=== PATIENT | male | born 1995 | race Caucasian/White ===

== ENCOUNTER 2016-05-21 13:11 | Emergency (ER) | payer MEDICAID ==
[2016-05-21 13:18] VITALS: O2SAT 95
--- NOTE | 2016-05-21 14:26 | EDPHY ---
H & P Time Seen by Provider: 05/21/16 14:25 HPI/ROS: CHIEF COMPLAINT: Nausea and vomiting HISTORY OF PRESENT ILLNESS: This 20-year-old man presents with his mother. He has a history apparently of diverticulosis diagnosed by CT in [place]. He has never had abdominal surgery and never had diverticulitis. Patient presents with onset of nausea and vomiting around midnight with multiple episodes of vomiting and diarrhea but without melena coffee-ground emesis or hematemesis. This is associated with mild diffuse abdominal cramping. No fever or chills and no recent fall injury or trauma. REVIEW OF SYSTEMS: Eye: no change in vision ENT: no sore throat Cardiac: no chest pain or syncope Pulmonary: no cough or SOB Abdomen: HPI Musculoskeletal: no back pain Skin: no rash Neuro: no headache Constitutional: no fever : no urinary symptoms A comprehensive 10 point review of systems is otherwise negative aside from elements mentioned in the history of present illness. PAST MEDICAL HISTORY: As in HPI Social history: Visiting from [place], with his mother, currently homeless. Temperature 36.7degrees General Appearance: Alert and conversant, cooperative. Eyes: No scleral icterus. ENT, Mouth: Slightly dry mucous membranes Respiratory: Normal respiratory effort, breath sounds equal, lungs are clear to auscultation. Cardiovascular: Regular rate and rhythm. Gastrointestinal: Abdomen is soft and non tender. Normal male . Normal bowel sounds. Neurological: Alert and oriented x3. Normally conversant. Face symmetric, normal movement and sensation in all extremities. Ambulatory to the bathroom Skin: Warm and dry, no rashes. Musculoskeletal: No peripheral edema and no joint swelling. Psychiatric: Mild to moderate anxiety otherwise normal. Emergency Department course/MDM: Zofran 4 mg IV and 2 L IV normal saline for vomiting. Clinical presentation suggests viral or food related gastroenteritis most likely , I think surgical diagnosis would be unlikely. 1628: Sleeping quietly, easily awakened, no nausea or vomiting, abdomen soft and nontender. Oral fluid trial now. Smoking Status: Current every day smoker Constitutional: Initial Vital Signs Heart Rate 112 H 05/21/16 13:16 Respiratory Rate 14 05/21/16 13:16 Blood Pressure 123/66 H 05/21/16 13:16 O2 Sat (%) 95 05/21/16 13:16 O2 Delivery Mode Room Air O2 (L/minute) 36.7 Allergies/Adverse Reactions: No Known Allergies Allergy (Unverified 05/21/16 13:17) Home Medications: Medication Instructions Recorded Ondansetron Odt [Zofran Odt] 4 mg PO Q4PRN #6 tab 05/21/16 Medical Decision Making Differential Diagnosis: Differential diagnosis considered for abdominal pain including but not limited to appendicitis, cholecystitis, pancreatitis, gastritis and urinary tract infection. - Data Points Medications Given: Discontinued Medications Sodium Chloride (Ns) 1,000 mls @ 0 mls/hr IV ONCE ONE PRN Reason: Wide Open Stop: 05/21/16 14:37 Last Admin: 05/21/16 14:46 Dose: 1,000 mls Sodium Chloride (Ns) 1,000 mls @ 0 mls/hr IV ONCE ONE PRN Reason: Wide Open Stop: 05/21/16 14:37 Last Admin: 05/21/16 14:47 Dose: 1,000 mls Ondansetron HCl (Zofran) 4 mg IVP EDNOW ONE Stop: 05/21/16 14:37 Last Admin: 05/21/16 14:46 Dose: 4 mg Departure - Departure Disposition: Home, Routine, Self-Care Clinical Impression: Vomiting and diarrhea Condition: Good Instructions: Dehydration (ED) Referrals: KOLBY,WALTK [Other] - As per Instructions May Romero DO [Doctor of Osteopathy] - As per Instructions (PCP referral) Prescriptions: Ondansetron Odt [Zofran Odt] 4 mg PO Q4PRN #6 tab
[2016-05-21] MEDS ORDERED: NS 1,000 ML IV ONE ×2 (14:36)
[2016-05-21] MEDS ORDERED: ONDANSETRON 4 MG/2 ML VIAL IVP ONE (14:36)
[2016-05-21 16:43] VITALS: BP 124/86; PULSE 98; RESP 16
== END 2016-05-21 16:44 | disposition home or self-care (01) ==
DX: R19.7 Diarrhea, unspecified (principal); R11.10 Vomiting, unspecified; F17.200 Nicotine dependence, unspecified, uncomplicated
CPT/HCPCS: 96374; J2405

== ENCOUNTER 2016-07-18 18:19 | Emergency (ER) | payer MEDICAID, OTHER ==
[2016-07-18 18:33] VITALS: RESP 16
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
[2016-07-18] MEDS ORDERED: IBUPROFEN 600 MG TAB PO ONE ×2 (19:07→19:08)
[2016-07-18 20:08] VITALS: BP 128/79; PULSE 80; TEMP 97.9; O2SAT 96
== END 2016-07-18 20:45 | disposition home or self-care (01) ==
DX: S62.346A Nondisplaced fracture of base of fifth metacarpal bone, right hand, initial encounter for closed fracture (principal); S40.011A Contusion of right shoulder, initial encounter; S70.11XA Contusion of right thigh, initial encounter; F17.200 Nicotine dependence, unspecified, uncomplicated; V03.02XA Pedestrian on skateboard injured in collision with car, pick-up truck or van in nontraffic accident, initial encounter; Y92.481 Parking lot as the place of occurrence of the external cause
CPT/HCPCS: A4565